=== PATIENT | female | born 1935 | race Two or more races ===

== ENCOUNTER → 2016-08-31 | Outpatient (CLI) | payer OTHER ==
[~2016-08-31] MED LIST: CARB25TA77 PO; CARV6.2551 PO; FURO20TA3 PO; GABA-494 PO; LIS10T PO; LORA-655 PO; TRAM-297 PO; [UNRECOGNIZED DRUG - CODE] PO
[2016-08-31 08:06] LABS: Basophils # (auto) 0 uL; Basophils % (auto) 0.4 % (0.0-2.0); Eosinophils # (auto) 0.1 uL; Eosinophils % (auto) 1.3 % (0.0-7.0); Hematocrit 38.5 % (36.0-46.0); Hemoglobin 12.7 g/dL (12.2-16.2); Lymphocytes # (auto) 1.2 uL; Lymphocytes % (auto) 30.3 % (10.0-50.0); Mean Corpuscular Hemoglobin 28.8 pg (28.0-32.0); Mean Corpuscular Hgb Conc. 33.1 g/dL (32.0-36.0); Mean Corpuscular Volume 87.2 fL (80.0-100.0); Mean Platelet Volume 9.1 fL (7.4-10.4); Monocytes # (auto) 0.3 uL; Monocytes % (auto) 6.6 % (0.0-12.0); Neutrophils # (auto) 2.5 uL; Neutrophils % (auto) 61.4 % (37.0-80.0); Platelet Count (auto) 244 10^3/uL (140-450); Red Cell Distribution Width 15.9 % (11.6-16.0); White Blood Cell 4.1 10^3/uL (4.4-10.8)
[2016-08-31 08:32] LABS: Urine Bilirubin Negative (Negative); Urine Blood Negative /uL (Negative); Urine Color Yellow (Yellow); Urine Glucose Normal (Normal); Urine Ketone Negative (Negative); Urine Mucus FEW (None Seen); Urine Nitrite Negative (Negative); Urine RBC 2 /hpf (0 - 4); Urine Squamous Epithelial Cell FEW /hpf (<5); Urine Urobilinogen Normal (Negative); Urine pH 5.5 (5.0-8.0)
[2016-08-31 09:00] LABS: Albumin 3.6 g/dL (3.4-5.0); BUN/Creatinine Ratio 19.1; Bilirubin, Total 0.5 mg/dL (0.2-1.0); Calcium 8.8 mg/dL (8.5-10.1); Uric Acid 5.2 mg/dL (2.6-6.0)
[2016-08-31 09:24] LABS: Temperature: 22.9 C (20.0-25.0)
== END | disposition home or self-care (01) ==
LOC: LAB 07:18
DX: I10 Essential (primary) hypertension (principal); G20 Parkinson's disease; M10.9 Gout, unspecified
CPT/HCPCS: 36415; 80053; 80061; 81001; 82306; 82607; 82746; 83036; 84443; 84550; 85025

== ENCOUNTER → 2017-07-17 | Outpatient (CLI) | payer OTHER ==
[~2017-07-17] MED LIST changes: -GABA-494 PO; +GABA100C9 PO
[2017-07-17 08:28] LABS: Basophils # (auto) 0 uL; Basophils % (auto) 0.7 % (0.0-2.0); Eosinophils # (auto) 0.1 uL; Eosinophils % (auto) 2.1 % (0.0-7.0); Hematocrit 38.5 % (36.0-46.0); Hemoglobin 12.6 g/dL (12.2-16.2); Lymphocytes # (auto) 1.3 uL; Lymphocytes % (auto) 25.9 % (10.0-50.0); Mean Corpuscular Hemoglobin 29.3 pg (28.0-32.0); Mean Corpuscular Hgb Conc. 32.8 g/dL (32.0-36.0); Mean Corpuscular Volume 89.4 fL (80.0-100.0); Monocytes # (auto) 0.4 uL; Monocytes % (auto) 7.4 % (0.0-12.0); Neutrophils # (auto) 3.3 uL; Neutrophils % (auto) 63.9 % (37.0-80.0); Platelet Count (auto) 191 10^3/uL (140-450); Red Blood Cells 4.31 10^6/uL (4.0-5.20); Red Cell Distribution Width 14.4 % (11.8-14.3); White Blood Cell 5.2 10^3/uL (4.4-10.8)
[2017-07-17 08:41] LABS: Urine Blood Negative /uL (Negative); Urine Specific Gravity 1.017 (1.001-1.035)
[2017-07-17 09:21] LABS: Albumin 3.5 g/dL (3.4-5.0); BUN/Creatinine Ratio 23.9; Bilirubin, Total 0.4 mg/dL (0.2-1.0); Calcium 9.3 mg/dL (8.5-10.1); Potassium 3.9 mmol/L (3.5-5.1)
== END | disposition home or self-care (01) ==
LOC: LAB 08:08
PROVIDERS: ATTEND Physician Assistant
DX: I12.9 Hypertensive chronic kidney disease with stage 1 through stage 4 chronic kidney disease, or unspecified chronic kidney disease (principal); E11.22 Type 2 diabetes mellitus with diabetic chronic kidney disease; N18.3 Chronic kidney disease, stage 3 (moderate); M17.0 Bilateral primary osteoarthritis of knee; G20 Parkinson's disease
CPT/HCPCS: 36415; 80053; 80061; 81003; 82306; 85025

== ENCOUNTER → 2018-06-04 | Outpatient (CLI) | payer MEDICAID, OTHER ==
[~2018-06-04] MED LIST changes: +ACET500T42 PO; -[UNRECOGNIZED DRUG - CODE] PO
== END | disposition home or self-care (01) ==
LOC: XY 08:21
PROVIDERS: ATTEND Internal Medicine
DX: I73.9 Peripheral vascular disease, unspecified (principal)
CPT/HCPCS: 93925

== ENCOUNTER → 2018-06-04 | Outpatient (CLI) | payer OTHER ==
[2018-06-04 10:26] LABS: Basophils # (auto) 0 uL; Basophils % (auto) 0.8 % (0.0-2.0); Eosinophils # (auto) 0.1 uL; Eosinophils % (auto) 2.4 % (0.0-7.0); Hematocrit 40.2 % (36.0-46.0); Hemoglobin 13.1 g/dL (12.2-16.2); Lymphocytes # (auto) 1.6 uL; Lymphocytes % (auto) 28.2 % (10.0-50.0); Mean Corpuscular Hemoglobin 29.5 pg (28.0-32.0); Mean Corpuscular Hgb Conc. 32.6 g/dL (32.0-36.0); Mean Corpuscular Volume 90.5 fL (80.0-100.0); Monocytes # (auto) 0.4 uL; Monocytes % (auto) 7.7 % (0.0-12.0); Neutrophils # (auto) 3.5 uL; Neutrophils % (auto) 60.9 % (37.0-80.0); Nucleated Red Blood Cells % 0.1 %; Platelet Count (auto) 240 10^3/uL (140-450); Red Blood Cells 4.44 10^6/uL (4.0-5.20); Red Cell Distribution Width 15.1 % (11.8-14.3); White Blood Cell 5.7 10^3/uL (4.4-10.8)
[2018-06-04 10:58] LABS: Albumin 3.3 g/dL (3.4-5.0); Calcium 8.9 mg/dL (8.5-10.1)
[2018-06-04 11:04] LABS: BUN/Creatinine Ratio 18.8; Bilirubin, Total 0.3 mg/dL (0.2-1.0); CRP High Sensitivity 0.12 mg/dL (< 0.3); Total Protein 7.4 g/dL (6.4-8.2)
== END | disposition home or self-care (01) ==
LOC: LAB 09:36
PROVIDERS: ATTEND Internal Medicine
DX: E55.9 Vitamin D deficiency, unspecified (principal); I11.0 Hypertensive heart disease with heart failure; I50.9 Heart failure, unspecified
CPT/HCPCS: 36415; 80053; 82306; 84443; 85025; 85652; 86141

== ENCOUNTER 2018-06-05 15:14 | Inpatient (IN) | payer OTHER ==
[~2018-06-05] VITALS: Ht 154.9 cm; Wt 54.3 kg
[2018-06-05] MEDS ORDERED: ENOXAPARIN SOD 60 MG/0.6 ML SYRINGE SC ONE (16:15)
[2018-06-05 16:21] LABS: Basophils # (auto) 0 uL; Basophils % (auto) 0.7 % (0.0-2.0); Eosinophils # (auto) 0.1 uL; Eosinophils % (auto) 1.5 % (0.0-7.0); Hematocrit 40.2 % (36.0-46.0); Lymphocytes # (auto) 1.6 uL; Lymphocytes % (auto) 25.1 % (10.0-50.0); Mean Corpuscular Hemoglobin 29.5 pg (28.0-32.0); Mean Corpuscular Hgb Conc. 32.3 g/dL (32.0-36.0); Mean Corpuscular Volume 91.1 fL (80.0-100.0); Monocytes # (auto) 0.5 uL; Monocytes % (auto) 8.2 % (0.0-12.0); Neutrophils # (auto) 4.1 uL; Neutrophils % (auto) 64.5 % (37.0-80.0); Nucleated Red Blood Cells % 0.1 %; Platelet Count (auto) 241 10^3/uL (140-450); Red Blood Cells 4.41 10^6/uL (4.0-5.20); Red Cell Distribution Width 15.1 % (11.8-14.3); White Blood Cell 6.3 10^3/uL (4.4-10.8)
[2018-06-05 16:25] LABS: Albumin 3.3 g/dL (3.4-5.0); BUN/Creatinine Ratio 16.8; Calcium 8.7 mg/dL (8.5-10.1); Potassium 3.6 mmol/L (3.5-5.1)
[2018-06-05 16:28] LABS: Bilirubin, Total 0.3 mg/dL (0.2-1.0); Total Protein 7.7 g/dL (6.4-8.2)
[2018-06-05 16:35] LABS: INR 0.99 (0.9-1.15); Prothrombin Time 10.6 sec (9.27-12.13)
[2018-06-05] MEDS ORDERED: HEPARIN DRIP/D5W 100UNITS/ML 250 ML IV SCH (16:53)
[2018-06-05] MEDS ORDERED: CLOPIDOGREL BISULFATE 75 MG TAB PO ONE ×2 (17:00)
[2018-06-05] MEDS ORDERED: HEPARIN SODIUM (PORCINE) 5000 UNITS/ML 1ML VIAL IV ONE ×2 (17:00)
[2018-06-05 17:40] LABS: CRP High Sensitivity 0.1 mg/dL (< 0.3)
[2018-06-05] MEDS ORDERED: LORazepam 0.5 MG TAB PO PRN (17:45)
[2018-06-05] MEDS ORDERED: ACETAMINOPHEN 500 MG TAB PO PRN (17:45)
[2018-06-05] MEDS ORDERED: ONDANSETRON HCL 4 MG/2 ML VIAL IV PRN (17:45)
[2018-06-05] MEDS: SODIUM CHLORIDE 0.9% 1,000 ML IV SCH (17:45)
[2018-06-05] MEDS ORDERED: traMADol HCL 50 MG TAB PO PRN ×2 (17:45→18:45)
[2018-06-05] MEDS ORDERED: MORPHINE SULFATE 4 MG/ML SYR/VIAL IV PRN ×2 (17:45→18:45)
[2018-06-05] MEDS ORDERED: NITROGLYCERIN 0.4 MG SL TAB SL PRN (17:45)
[2018-06-05] MEDS ORDERED: MORPHINE SULF INJ 2 MG/ML SYRINGE 1ML IV PRN ×2 (17:45→18:45)
[2018-06-05] MEDS ORDERED: PANTOPRAZOLE 40 MG/10 ML VIAL IV ONE (18:00)
--- NOTE | 2018-06-05 20:47 | NUR ---
Telemetry admit from ER SANIYA MCNALLY admitted to Telemetry unit after SBAR received. Patient oriented to Yuko Serra, primary RN, unit, room, bed, and unit policies regarding patient care and visiting hours. Patient now on continuous telemetry monitoring, tele box # [id number] and telemetry reading on arrival to unit is sinus rhythm. Patient weighed by bedscale and encouraged to call if they need something. All questions and concerns addressed, patient verbalized understanding.
[2018-06-05 21:00] VITALS: BP 153/76
--- NOTE | 2018-06-05 21:34 | NUR ---
Call to Laboratory to remind the PTT draw at 2200.
[2018-06-05 22:00] VITALS: BP 153/76
[2018-06-05] MEDS: CARBIDOPA W LEVODOPA CR 25/100mg TABLET PO SCH ×2 (22:00→22:20)
--- NOTE | 2018-06-05 22:07 | NUR ---
PTT not drawn yet. Called Laboratory again to remind PTT draw.
[2018-06-05] MEDS: CARVEDILOL 3.125 MG TAB PO SCH (22:13)
[2018-06-05] MEDS: GABAPENTIN 100 MG CAP PO SCH (22:14)
[2018-06-05] MEDS: LISINOPRIL 10 MG TAB PO SCH (22:15)
--- NOTE | 2018-06-05 22:46 | NUR ---
Emt Driver in for PTT blood draw.
--- NOTE | 2018-06-05 23:01 | NUR ---
Called Laboratory for PTT result, per Lab it is still running and will release result once done.
[2018-06-05 23:04] LABS: INR 1.04 (0.9-1.15); Prothrombin Time 11.1 sec (9.27-12.13)
[2018-06-05 23:10] LABS: Partial Thromboplastin Time 79.3 sec (23.78-33.04)
--- NOTE | 2018-06-05 23:10 | NUR ---
PTT is 79.3, no bolus, decreased rate by 200units/hr=2ml/hr, rate now is 772u/hr = 7.72ml/hr.
[2018-06-06] MEDS: SODIUM CHLORIDE 0.9% 1,000 ML IV SCH ×2 (04:00→12:41)
--- NOTE | 2018-06-06 04:41 | NUR ---
Called Laboratory for PTT blood draw.
[2018-06-06 05:03] VITALS: BP 166/83
[2018-06-06 05:06] VITALS: BP 115/57
--- NOTE | 2018-06-06 05:42 | NUR ---
Called laboratory to follow up PTT result, states not yet in and all the Industrial Machinery Mechanic are on the floor.
--- NOTE | 2018-06-06 06:06 | NUR ---
[employer] Lead Ads Marketing at bedside to draw blood.
[2018-06-06] MEDS: GABAPENTIN 100 MG CAP PO SCH ×3 (06:11→22:00)
[2018-06-06] MEDS: CARBIDOPA W LEVODOPA CR 25/100mg TABLET PO SCH ×4 (06:11→22:01)
[2018-06-06] MEDS: FUROSEMIDE 20 MG TAB PO SCH (06:12)
--- NOTE | 2018-06-06 06:45 | NUR ---
Called laboratory for PTT result, states it is spinning down and will call once result is in.
[2018-06-06 06:54] LABS: Basophils # (auto) 0 uL; Basophils % (auto) 0.6 % (0.0-2.0); Eosinophils # (auto) 0.2 uL; Eosinophils % (auto) 3.8 % (0.0-7.0); Hematocrit 34.7 % (36.0-46.0); Hemoglobin 11.1 g/dL (12.2-16.2); Lymphocytes # (auto) 1.4 uL; Lymphocytes % (auto) 30.8 % (10.0-50.0); Mean Corpuscular Hemoglobin 29.5 pg (28.0-32.0); Mean Corpuscular Hgb Conc. 31.9 g/dL (32.0-36.0); Mean Corpuscular Volume 92.5 fL (80.0-100.0); Monocytes # (auto) 0.5 uL; Monocytes % (auto) 10.3 % (0.0-12.0); Neutrophils # (auto) 2.5 uL; Neutrophils % (auto) 54.5 % (37.0-80.0); Nucleated Red Blood Cells % 0.1 %; Platelet Count (auto) 184 10^3/uL (140-450); Red Blood Cells 3.75 10^6/uL (4.0-5.20); Red Cell Distribution Width 15.4 % (11.8-14.3); White Blood Cell 4.5 10^3/uL (4.4-10.8)
[2018-06-06 06:56] LABS: INR 1.07 (0.9-1.15); Prothrombin Time 11.4 sec (9.27-12.13)
[2018-06-06 07:03] LABS: Partial Thromboplastin Time 83.2 sec (23.78-33.04)
--- NOTE | 2018-06-06 07:04 | NUR ---
Call from laboratory for PTT of 83.2, no bolus needed, decreased rate by 200u/hr = 2ml/hr, current rate now is 572u/hr = 5.72ml/hr.
[2018-06-06 07:22] LABS: BUN/Creatinine Ratio 19.3; Calcium 8.1 mg/dL (8.5-10.1)
--- NOTE | 2018-06-06 07:25 | NUR ---
Endorsed care to Cris BREWER.
[2018-06-06 08:00] VITALS: BP 130/70
[2018-06-06] MEDS: CARVEDILOL 3.125 MG TAB PO SCH ×2 (09:17→22:00)
[2018-06-06] MEDS: LISINOPRIL 10 MG TAB PO SCH ×2 (09:18→22:00)
[2018-06-06] MEDS ORDERED: PANTOPRAZOLE 40 MG/10 ML VIAL IV SCH (10:00)
--- NOTE | 2018-06-06 10:30 | NUR ---
MD CORONA AT BEDSIDE BUILDING CARPENTER AT BEDSIDE. NEW ORDERS TO DISCONTINUE TELEMETRY, OK FOR PATIENT TO EAT TODAY. WILL FOLLOW THROUGH WITH NEW ORDERS.
[2018-06-06] MEDS ORDERED: LORazepam 0.5 MG TAB PO PRN (10:45)
--- NOTE | 2018-06-06 10:57 | NUR ---
CALLED DIETARY, LEFT MESSAGE FOR DIET CHANGE, REQUESTED TRAY TO BE SENT.
--- NOTE | 2018-06-06 10:58 | NUR ---
TELEMETRY DISCONTINUED PER MD REQUEST.
--- NOTE | 2018-06-06 11:16 | NUR ---
WOUND CARE NOTE: Wound care in to see patient per wound care request regarding "low Rai score of 13" putting patient high risk for pressure injury. Patient is 82 years old female with admitting diagnosis of Peripheral Arterial Disease. Patient is resting in bed in Rm. 220B. Patient is awake but with confusion per nurse's reports. Patient appears to be in no pain using Casanova Mckeon Faces Pain Scale. Patient is bedbound due to Parkinson disease and she needs assistance in turning and repositioning. Skin assessment done with the assistance of patient' s nurse, OSMAN Lynch. No open wound noted, no pressure injury related issue noted. Patient is incontinent and wet the bed. OSMAN Lynch and nurse aide to clean patient and to apply Barrier cream to sacrum and perineum after cleaning patient and linen change. Patient tolerated well. Nurse at bedside. RECOMMENDATION: BID/PRN cleaning and application of Barrier cream to sacrum/perineum per MD order,Dietary consult, frequent turning and repositioning schedule as condition permits, redistribute pressure points with pillows, elevate BLE on pillows, continue monitoring by wound care while patient is hospitalized. Addendum: 06/06/18 at 1533 by Marjan Rangel RN Amended: Links added.
[2018-06-06 12:00] VITALS: BP 154/82
[2018-06-06 12:56] LABS: INR 1.04 (0.9-1.15); Partial Thromboplastin Time 50.1 sec (23.78-33.04); Prothrombin Time 11.1 sec (9.27-12.13)
--- NOTE | 2018-06-06 13:43 | NUR ---
MD TREVIÑO AT BEDSIDE. Addendum: 06/06/18 at 1345 by MERCEDEZ KATZ RN NEW ORDERS FOR VENOUS DOPPLER RIGHT TO RULE OUT DVT. WILL FOLLOW THROUGH WITH NEW ORDERS.
--- NOTE | 2018-06-06 14:59 | NUR ---
Patient states she has a headache, acetaminophen given at this time. Will continue to monitor.
[2018-06-06 17:00] VITALS: BP 143/68
--- NOTE | 2018-06-06 17:20 | NUR ---
PATIENT SWITCHED TO SPECIALITY BED. PATIENT TOLERATED WELL, NO S/S OF DISTRESS.
[2018-06-06 19:09] LABS: INR 1.03 (0.9-1.15); Partial Thromboplastin Time 44.6 sec (23.78-33.04)
--- NOTE | 2018-06-06 19:20 | NUR ---
Opening Shift Note Received report from Cris BREWER. Assumed care of patient, awake and alert, eating dinner. No S/S of distress/SOB or pain. Instructed on POC and to call for assist PRN. Fall precaution measures in place, will continue to monitor for changes Q1hr and PRN.
[2018-06-06] MEDS ORDERED: HEPARIN DRIP/D5W 100UNITS/ML 250 ML IV SCH (19:45)
--- NOTE | 2018-06-06 19:52 | NUR ---
PTT is 44.60, no bolus and increased by 200units/hr = 2ml/hr, rate now is 772units/hr = 7.72ml/hr.
--- NOTE | 2018-06-06 19:58 | NUR ---
Per pharmacy round up the drip rate of Heparin, from 7.72ml/hr to 8ml/hr.
[2018-06-06 21:00] VITALS: BP 111/67
--- NOTE | 2018-06-07 02:03 | NUR ---
Magnetic Prospecting Operator at bedside for PTT draw.
--- NOTE | 2018-06-07 02:45 | NUR ---
Called laboratory, no result of PTT yet, still on the machine.
[2018-06-07 02:53] LABS: INR 1.05 (0.9-1.15); Prothrombin Time 11.2 sec (9.27-12.13)
[2018-06-07 02:56] LABS: Partial Thromboplastin Time 83.3 sec (23.78-33.04)
--- NOTE | 2018-06-07 02:58 | NUR ---
Laboratory called for critical PTT of 83.3, per protocol no bolus and decrease rate by 200units/hr = 2ml/hr. Rate now is 600units/hr = 6ml/hr.
[2018-06-07 05:00] VITALS: BP 150/86
[2018-06-07] MEDS: SODIUM CHLORIDE 0.9% 1,000 ML IV SCH (05:50)
[2018-06-07] MEDS: CARBIDOPA W LEVODOPA CR 25/100mg TABLET PO SCH ×2 (06:24→11:52)
[2018-06-07] MEDS: GABAPENTIN 100 MG CAP PO SCH ×2 (06:24→14:00)
[2018-06-07] MEDS: FUROSEMIDE 20 MG TAB PO SCH (06:25)
[2018-06-07 07:27] LABS: Potassium 4.2 mmol/L (3.5-5.1)
[2018-06-07 07:32] LABS: BUN/Creatinine Ratio 20.1; Calcium 8.5 mg/dL (8.5-10.1)
[2018-06-07 08:00] VITALS: BP 153/55
--- NOTE | 2018-06-07 09:00 | NUR ---
FAMILY AT BEDSIDE. ALL QUESTIONS AND CONCERNS ADDRESSED.
[2018-06-07 09:33] LABS: INR 1.05 (0.9-1.15); Partial Thromboplastin Time 57.8 sec (23.78-33.04); Prothrombin Time 11.2 sec (9.27-12.13)
[2018-06-07] MEDS: CARVEDILOL 3.125 MG TAB PO SCH (09:55)
[2018-06-07] MEDS: LISINOPRIL 10 MG TAB PO SCH (09:55)
[2018-06-07] MEDS ORDERED: PANTOPRAZOLE 40 MG TAB PO SCH (10:00)
--- NOTE | 2018-06-07 10:00 | NUR ---
HEPARIN DRIP NO CHANGE PTT 57.8, NO CHANGE NEEDED PER eMAR PROTOCOL. WILL CONTINUE TO MONITOR. NEXT PTT LAB DRAW ORDERED FOR 1500.
--- NOTE | 2018-06-07 11:00 | NUR ---
MD CORONA AT BEDSIDE NEW ORDERS TO DISCONTINUE HEPARIN DRIP. WILL FOLLOW THROUGH WITH NEW ORDERS.
--- NOTE | 2018-06-07 11:09 | NUR ---
assessment Patient is a 82 year old Central African speaking female. Marie JENKINS is translating for us. Patient informed me she lives home with family and family helps her at home. Patient stated she has a wheelchair for home use. Patient stated she feels safe at home. Patient states she feels safe returning home on discharge. I will call patients son to further clarify living situation. Addendum: 06/10/18 at 1616 by Freda CHRISTIAN Amended: Links added.
--- NOTE | 2018-06-07 11:30 | NUR ---
FAMILY CALLED- SON MO MCGHEE UPDATED ON PATIENT STATUS. REQUESTED PHYSICAL THERAPY FOR HOME. WILL INFORM FISH HATCHERY WORKER.
--- NOTE | 2018-06-07 11:43 | NUR ---
SPOKE WITH MD CORONA MADE AWARE OF PATIENT FAMILY REQUEST FOR PHYSICAL THERAPY OR HOME HEALTH. VERBALIZED UNDERSTANDING, STATED HE WILL CONSULT HOUSING PROJECT MANAGER.
--- NOTE | 2018-06-07 11:44 | NUR ---
SPOKE WITH ANATOLY FROM HEAD OF [employer] MADE AWARE OF PATIENT FAMILY REQUEST FOR PHYSICAL THERAPY OR HOME HEALTH. STATED PATIENT NEEDS TO BE EVALUATED BY PHYSICAL THERAPY. WILL CONTINUE TO MONITOR.
--- NOTE | 2018-06-07 11:50 | NUR ---
HEPARIN DRIP STOPPED PER MD ORDERS
--- NOTE | 2018-06-07 11:51 | NUR ---
PAGED FOR PHYSICAL THERAPY
[2018-06-07 12:00] VITALS: BP 161/71
--- NOTE | 2018-06-07 12:44 | NUR ---
NO ECHOCARDIOGRAM, NOTIFIED MD CORONA NOTIFIED, ECHO LAST DONE 2014. PER CHF PROTOCOL, RECOMMENDS ECHOCARDIOGRAM. VERBALIZED UNDERSTANDING, STATED "THAT'S FINE."
[2018-06-07 13:02] VITALS: BP 153/55
--- NOTE | 2018-06-07 13:35 | NUR ---
PHYSICAL THERAPY AT BEDSIDE.
--- NOTE | 2018-06-07 14:14 | NUR ---
Faxed home health PT order to [facility], they are willing to accept the patient and can see her on Sunday.
--- NOTE | 2018-06-07 14:20 | NUR ---
HOME HEALTH ACCEPTED RECEIVED CALL FROM DENNIS IN CASE MANAGEMENT, [facility] [phone] ACCEPTED PATIENT AND STATED HOME HEALTH WILL SEE HER SUNDAY.
--- NOTE | 2018-06-07 14:26 | NUR ---
ATTEMPTED TO CALL FAMILY FOR DISCHARGE NO ANSWER [phone]. LEFT MESSAGE. WILL TRY AGAIN. Addendum: 06/07/18 at 1430 by MERCEDEZ KATZ RN PHONE NUMBER [phone]
--- NOTE | 2018-06-07 14:30 | NUR ---
CALLED PATIENT SON, MO MCGHEE [phone]. UPDATED ON PATIENT HOME HEALTH STATUS. STATED HE WILL CALL [facility] ASSESSMENT SPECIALIST LEANN FOR DISCHARGE.
--- NOTE | 2018-06-07 14:37 | NUR ---
PATIENT SON, LEANN ON HIS WAY TO TRAUMA COUNSELLOR PATIENT JEWELL HASSAN, STATED HE SPOKE WITH LEANN [phone]. WILL CONTINUE WITH DISCHARGE.
--- NOTE | 2018-06-07 15:30 | NUR ---
Discharge instructions given as ordered, to bren Davidson. Encourage to follow up with PMD as instructed. Explained to son, patient needs to make her own follow up appointment, address and phone number provided. Patient son given new prescriptions, and [facility] phone number. All questions and concerns addressed. Patient family verbalized understanding. Medication reconciliation form completed and copy given to patient. IV removed with catheter intact, pressure dressing applied. Patient taken to vehicle via patient own wheelchair with all personal belongings, accompanied by staff and family member. No distress noted at time of departure.
[2018-06-07 15:36] LABS: INR 1.03 (0.9-1.15); Partial Thromboplastin Time 27.5 sec (23.78-33.04)
== END 2018-06-07 15:45 | disposition home health service (06) | DRG 299 ==
LOC: ER 15:14 → TELE 17:43 → TELE-CENTR 20:47 → CENTRAL 06-06 10:48
PROVIDERS: ADMIT Nurse Practitioner Acute Care; ATTEND Internal Medicine
DX: I77.89 Other specified disorders of arteries and arterioles (principal); N17.0 Acute kidney failure with tubular necrosis; E44.0 Moderate protein-calorie malnutrition; I12.9 Hypertensive chronic kidney disease with stage 1 through stage 4 chronic kidney disease, or unspecified chronic kidney disease; N18.3 Chronic kidney disease, stage 3 (moderate); Z74.01 Bed confinement status; G20 Parkinson's disease; F02.80 Dementia in other diseases classified elsewhere, unspecified severity, without behavioral disturbance, psychotic disturbance, mood disturbance, and anxiety; E78.5 Hyperlipidemia, unspecified; Z79.82 Long term (current) use of aspirin; Z82.49 Family history of ischemic heart disease and other diseases of the circulatory system
CPT/HCPCS: 36415; 71045; 80048; 80053; 82550; 82962; 83735; 85025; 85610; 85730; 86141; 93005; 93971; 94761; 96361; 96365; 96375; C9113; G0378

== ENCOUNTER → 2018-07-31 | Outpatient (CLI) | payer OTHER | END | disposition home or self-care (01) | LOC: LAB 10:32 | PROVIDERS: ATTEND Physician Assistant | DX: G20 Parkinson's disease (principal); I73.9 Peripheral vascular disease, unspecified; I12.9 Hypertensive chronic kidney disease with stage 1 through stage 4 chronic kidney disease, or unspecified chronic kidney disease; N18.3 Chronic kidney disease, stage 3 (moderate) | CPT/HCPCS: 36415; 83036 ==